=== PATIENT | male | born 1940 | race Caucasian/White ===

== ENCOUNTER 2017-06-13 21:54 | Observation (INO) | payer OTHER ==
[2017-06-13] MEDS ORDERED: ONDANSETRON 4 MG/2 ML VIAL ONE (22:23)
[2017-06-13] MEDS ORDERED: ONDANSETRON 4 MG/2 ML VIAL IVP ONE (22:24)
[2017-06-13] MEDS ORDERED: HYDROmorphONE/DILAUDID 2 MG/ML INJ ONE (22:30)
[2017-06-13] MEDS ORDERED: NS 1,000 ML IV ONE (22:33)
[2017-06-13] MEDS ORDERED: HYDROmorphONE/DILAUDID 2 MG/ML INJ IVP ONE (22:33)
--- NOTE | 2017-06-13 22:33 | EDPHY ---
H & P Stated Complaint: left groin pain with N,V Time Seen by Provider: 06/13/17 22:33 HPI/ROS: HPI CHIEF COMPLAINT: Left lower quadrant pain nausea HISTORY OF PRESENT ILLNESS: Patient is a 77-year-old male, he has coronary artery disease, additionally prostate cancer, presents emergency room with left lower quadrant abdominal pain that started around 830 this evening. It was rather sudden onset it is located left lower quadrant rather severe describes it as sharp stabbing left lower quadrant 10/10 pain. He did have some nausea but no vomiting, denies diarrhea, denies chest pain or shortness of breath. Denies back pain. Main complaint left lower quadrant abdominal pain. Denies testicular pain or urinary symptoms. Denies pain coming from his back. Past Medical History: Coronary artery disease, prostate cancer, obesity Past Surgical History: No recent surgery Social History: Lives locally denies drugs alcohol tobacco. Family History: Noncontributory ROS REVIEW OF SYSTEMS: A comprehensive 10 point review of systems is otherwise negative aside from elements mentioned in the history of present illness. Exam Constitutional appears uncomfortable triage nursing summary reviewed, vital signs reviewed, awake/alert. Eyes normal conjunctivae and sclera, EOMI, PERRLA. HENT normal inspection, atraumatic, moist mucus membranes, no epistaxis, neck supple/ no meningismus, no raccoon eyes. Respiratory clear to auscultation bilaterally, normal breath sounds, no respiratory distress, no wheezing. Cardiovascular rate normal, regular rhythm, no murmur, no edema, distal pulses normal. Gastrointestinal tender palpation a focal area left lower quadrant, no palpable mass, no rebound, no guarding, normal bowel sounds, no distension, no pulsatile mass. Genitourinary no CVA tenderness. Musculoskeletal no midline vertebral tenderness, full range of motion, no calf swelling, no tenderness of extremities, no meningismus, good pulses, neurovascularly intact. Skin pink, warm, & dry, no rash, skin atraumatic. Neurologic awake, alert and oriented x 3, AAOx3, moves all 4 extremities equally, motor intact, sensory intact, CN II-XII intact, normal cerebellar, normal vision, normal speech. Psychiatric normal mood/affect. Heme/Lymph/Immune no lymphadenopathy. Differential diagnosis includes but is not limited to and in no particular order : Bowel obstruction, appendicitis, gallbladder disease, diverticulitis, colitis , enteritis, perforated viscus, gastritis, GERD, esophagitis, urinary tract infection, pyelonephritis, kidney stones Medical Decision Making: Plan for this patient IV establishment IV fluid bolus IV Dilaudid for acute pain control 1 mg, 4 mg IV Zofran for nausea, check basic blood work, lactic acid and re-evaluate. Re-evaluation: CT abdomen pelvis with IV contrast shows a left-sided mid ureter stone is 5 mm. Mild hydronephrosis. Otherwise unremarkable CT scan. Called to me by Dr. Benson. 1204: Patient is feeling much better after IV Dilaudid IV Toradol. Pain is well controlled. CT scan reveals left-sided kidney stone. Patient is requesting admission to the hospital for nausea and IV fluids. Additionally pain control. This time is pain is well controlled. However he met his requesting admission the hospital. Will speak with Dr. Alexander/Lamine for hospital admission. 1210AM: Spoke with Dr. Garcia, on-call, should be glad to admit the patient for nausea pain control. Source: Patient - Personal History Current Tetanus/Diphtheria Vaccine: Yes Current Tetanus Diphtheria and Acellular Pertussis (TDAP): Yes - Medical/Surgical History Hx Chronic Respiratory Disease: Yes Hx Cardiac Disease: Yes Other PMH: prostate CA with recent radium seeds - Social History Smoking Status: Former smoker Constitutional: Initial Vital Signs Temperature (C) 36.8 C 06/13/17 22:00 Heart Rate 55 L 06/13/17 22:00 Respiratory Rate 18 06/13/17 22:00 Blood Pressure 160/83 H 06/13/17 22:00 O2 Sat (%) 94 06/13/17 22:00 O2 Delivery Mode Nasal Cannula O2 (L/minute) 2 Allergies/Adverse Reactions: Penicillins Allergy (Intermediate, Verified 06/26/14 13:51) Hives Home Medications: Medication Instructions Recorded Ascorbic Acid [Vitamin C 500 mg 500 mg PO BID 06/26/14 (*)] Aspirin [Aspirin 325 mg (*)] 325 mg PO HS 06/26/14 Azelastine [Astelin] 200 sprays NS DAILY PRN 06/26/14 Calcium Citrate [Citracal] 600 mg PO BID 06/26/14 Cholecalciferol Vit D3 [Vitamin D3 5,000 unit PO DAILY 06/26/14 (*)] Cholecalciferol Vit D3 [Vitamin D3 5,000 unit PO HS 06/26/14 (*)] Cyanocobalamin (Vitamin B-12) 1,000 mcg PO DAILY 06/26/14 [Vitamin B-12] Divalproex ER [Depakote ER 500 MG 500 mg PO HS 06/26/14 (*)] Docusate Sodium [Colace 100 MG (*)] 100 mg PO BID 06/26/14 Ezetimibe [Zetia 10 MG (*)] 10 mg PO DAILY 06/26/14 Ipratropium/Albuterol [Combivent 1 inh IH QID PRN 06/26/14 Respimat Inhal [place](*)] Levothyroxine [Synthroid 75 mcg 75 mcg PO DAILY06 06/26/14 (*)] Montelukast Sodium [Singulair 10 10 mg PO DAILY@1800 06/26/14 mg (*)] [place]-3 Ethyl Est-Lovaza [Lovaza 1 1 gm PO BID 06/26/14 gm (*)] Omeprazole [Prilosec 20 mg] 20 mg PO DAILY PRN 06/26/14 Pyridoxine HCl [Vitamin B-6 100 mg 100 mg PO DAILY 06/26/14 (*)] QUEtiapine FUMARATE [Seroquel 50 200 mg PO HS 06/26/14 mg (*)] Rosuvastatin Calcium [Crestor 20mg 20 mg PO HS 06/26/14 (*)] Selenium [Selenium 200mcg (*)] 200 mcg PO DAILY 06/26/14 Tamsulosin HCl [Flomax 0.4 MG (*)] 0.4 mg PO BID 06/26/14 Vitamin E [Vitamin E 200 units] 200 units PO DAILY 06/26/14 clonazePAM [Klonopin (*)] 1 mg PO HS 06/26/14 Bupropion HCl [Wellbutrin Xl] 300 mg PO DAILY 06/28/14 buPROPion XL [Wellbutrin 150mg XL] 150 mg PO DAILY 06/28/14 Benzonatate [Tessalon Pearles] 200 mg PO TID PRN #0 cap 07/02/14 predniSONE 20 mg PO BIDMEAL #0 tablet 07/02/14 Medical Decision Making - Diagnostics Imaging Results: Imaging Impressions Abdomen CT 06/13/17 22:36 Impression: 1. Obstructive 5 mm calculus in the left mid ureter causing mild-moderate hydronephrosis. 2. Sigmoid diverticulosis, mild. Findings were communicated by telephone with Dr. Steve Hull MD at 2017 23:31 - Data Points Laboratory Results: Laboratory Results 06/13/17 22:20 06/13/17 22:20 06/13/17 06/13/17 06/13/17 22:40 22:20 22:20 WBC RBC Hgb Hct MCV MCH MCHC RDW Plt Count MPV Neut % (Auto) Lymph % (Auto) [place] % (Auto) Eos % (Auto) Baso % (Auto) Nucleat RBC Rel Count Absolute Neuts (auto) Absolute Lymphs (auto) Absolute Monos (auto) Absolute Eos (auto) Absolute Basos (auto) Absolute Nucleated RBC Immature Gran % Immature Gran # PT 13.2 SEC SEC (12.0-15.0) INR 0.98 (0.83-1.16) APTT 26.9 SEC SEC (23.0-38.0) VBG Lactic Acid 1.4 mmol/L mmol/L (0.7-2.1) Sodium 141 mEq/L mEq/L (135-145) Potassium 4.6 mEq/L mEq/L (3.5-5.2) Chloride 104 mEq/L mEq/L (97-110) Carbon Dioxide 26 mEq/l mEq/l (22-31) Anion Gap 11 mEq/L mEq/L (8-16) BUN 29 mg/dL H mg/dL (7-23) Creatinine 1.2 mg/dL mg/dL (0.7-1.3) Estimated GFR 59 Glucose 118 mg/dL H mg/dL (70-100) Calcium 9.5 mg/dL mg/dL (8.5-10.4) Total Bilirubin 0.4 mg/dL mg/dL (0.1-1.4) Conjugated Bilirubin 0.4 mg/dL mg/dL (0.0-0.5) Unconjugated Bilirubin 0.0 mg/dL mg/dL (0.0-1.1) AST 67 IU/L H IU/L (17-59) ALT 81 IU/L H IU/L (21-72) Alkaline Phosphatase 48 IU/L IU/L (38-126) Total Protein 6.3 g/dL g/dL (6.3-8.2) Albumin 4.0 g/dL g/dL (3.5-5.0) Lipase 86 IU/L IU/L (23-300) 06/13/17 22:20 WBC 4.75 10^3/uL 10^3/uL (3.80-9.50) RBC 4.50 10^6/uL 10^6/uL (4.40-6.38) Hgb 15.1 g/dL g/dL (13.7-17.5) Hct 43.9 % % (40.0-51.0) MCV 97.6 fL fL (81.5-99.8) MCH 33.6 pg pg (27.9-34.1) MCHC 34.4 g/dL g/dL (32.4-36.7) RDW 13.4 % % (11.5-15.2) Plt Count 136 10^3/uL L 10^3/uL (150-400) MPV 9.9 fL fL (8.7-11.7) Neut % (Auto) 68.0 % % (39.3-74.2) Lymph % (Auto) 17.1 % % (15.0-45.0) [place] % (Auto) 10.1 % % (4.5-13.0) Eos % (Auto) 4.0 % % (0.6-7.6) Baso % (Auto) 0.4 % % (0.3-1.7) Nucleat RBC Rel Count 0.0 % % (0.0-0.2) Absolute Neuts (auto) 3.23 10^3/uL 10^3/uL (1.70-6.50) Absolute Lymphs (auto) 0.81 10^3/uL L 10^3/uL (1.00-3.00) Absolute Monos (auto) 0.48 10^3/uL 10^3/uL (0.30-0.80) Absolute Eos (auto) 0.19 10^3/uL 10^3/uL (0.03-0.40) Absolute Basos (auto) 0.02 10^3/uL 10^3/uL (0.02-0.10) Absolute Nucleated RBC 0.00 10^3/uL 10^3/uL (0-0.01) Immature Gran % 0.4 % % (0.0-1.1) Immature Gran # 0.02 10^3/uL 10^3/uL (0.00-0.10) PT INR APTT VBG Lactic Acid Sodium Potassium Chloride Carbon Dioxide Anion Gap BUN Creatinine Estimated GFR Glucose Calcium Total Bilirubin Conjugated Bilirubin Unconjugated Bilirubin AST ALT Alkaline Phosphatase Total Protein Albumin Lipase Medications Given: Discontinued Medications Hydromorphone HCl (Dilaudid) 1 mg IVP EDNOW ONE Stop: 06/13/17 22:34 Last Admin: 06/13/17 22:36 Dose: 1 mg Hydromorphone HCl (Dilaudid) 1 mg IVP EDNOW ONE Stop: 06/13/17 23:22 Last Admin: 06/13/17 23:24 Dose: 1 mg Sodium Chloride (Ns) 1,000 mls @ 0 mls/hr IV EDNOW ONE; Wide Open PRN Reason: Protocol Stop: 06/13/17 22:34 Last Admin: 06/13/17 22:43 Dose: 1,000 mls Ketorolac Tromethamine (Toradol) 15 mg IVP EDNOW ONE Stop: 06/13/17 23:26 Last Admin: 06/13/17 23:32 Dose: 15 mg Ondansetron HCl (Zofran) 4 mg IVP EDNOW ONE Stop: 06/13/17 22:25 Last Admin: 06/13/17 22:26 Dose: 4 mg Departure - Departure Disposition: [facility] Acute Clinical Impression: Flank pain, Kidney stone on left side Condition: Good Instructions: Kidney Stones (ED), Renal Colic (ED) Additional Instructions: 1. Make sure to drink lots of fluids stay well-hydrated. 2. Flomax as prescribed. 3. Return emergency room if develops worsening abdominal pain fever vomiting. 4. Follow up with Urology. Referrals: Ashok Perales MD [Primary Care Provider] - As per Instructions
[2017-06-13 22:43] LABS: PLATELET COUNT 136 10^3/uL (150-400)
[2017-06-13 22:48] LABS: INR 0.98 (0.83-1.16); PROTIME(PATIENT) 13.2 SEC (12.0-15.0)
[2017-06-13] MEDS ORDERED: IOPAMIDOL (ISOVUE-300) 100 ML BTL ONE (22:56)
[2017-06-13] MEDS ORDERED: HYDROmorphONE/DILAUDID 1 MG/ML INJ IVP ONE (23:21)
[2017-06-13] MEDS ORDERED: KETOROLAC 15 MG/1 ML SDV IVP ONE (23:25)
[2017-06-14] MEDS ORDERED: NS 1,000 ML IV ONE (00:04)
--- NOTE | 2017-06-14 00:26 | CPEKG ---
Heart Rate: 44 RR Interval: 1364 P-R Interval: 196 QRSD Interval: 96 QT Interval: 528 QTC Interval: 452 P Viola: 44 QRS Viola: -10 T Wave Viola: 58 EKG Severity - BORDERLINE ECG - EKG Impression: SINUS BRADYCARDIA EKG Impression: BORDERLINE T WAVE ABNORMALITIES Electronically Signed By: Tiffanie Rod 15-Jun-2017 12:30:32
--- NOTE | 2017-06-14 01:33 | SOAPPROG ---
SOAP Progress Note Assessment/Plan: Assessment: Plan: 06/14/17 02:13 Nephrolithiasis: currently in process of passing kidney stone. Pain well managed with dilaudid. Having nausea, likely in response to narcotic. Is somewhat sedated, so will use lower dose dilaudid as needed until stone passes. Associated with mild hydronephrosis. Continue prn zofran. Bradycardia: heart typically in the 50s. Suspect decreased rate secondary to narcotics. Pt without chest pain. Was not tachycardic in ED even when pain at its worst. CAD: Significant plaque on EBT heart scan, but stable on last scan done 09/18. Continue Lovaza, niaspan, low dose metoprolol, aspirin Asthma/COPD: uses combivent prn. Currently asymptomatic Hyperlipidemia: on crestor, zetia Bipolar 1: on multiple meds--bupropion, depakote, seroquel, clonazepam so will continue Hypothyroid: on replacement Prostate cancer: treatment has left him with difficulty having BMs, so takes Miralax and docusate daily. Will plan to continue Mild elevation of ALT, AST: not seen on previous labs done in 10/19. Will recheck in morning. EZE: uses CPAP at home but didn't bring equipment with him. DVT prophylaxis: will use SCDs given that he is passing stone. No urine yet to assess for bleeding, but will avoid anticoagulant Dispo: admit to obs. Expect he will pass stone and be ready for discharge later today. 06/14/17 02:39 06/14/17 02:43 Subjective: 77 yo male with hx CAD, prostate cancer, bipolar 1, asthma and COPD who developed severe L sided abdominal pain at approximately 8:30 pm tonight. Pain was initially 9/10 then decreased to 4/10, then began to worsen again so he came to ED. States he has been followed by a urologist in [place], which is where he has been treated for his prostate cancer, and sounds like he may have had an asymptomatic stone high in his collecting system. CT in the ER tonight shows a 5mm stone in the mid L ureter with mild-moderate hydronephrosis. Labs are unremarkable except for a mild elevation of AST and ALT. He has received dilaudid in the ED and is currently pain free. He has had some nausea which started when pain was severe. He is also bradycardic in the 40s. His usual heart rate is in the 50s. He is being admitted for ongoing pain management while passing the stone, and to be observed for his bradycardia. Objective: Vital Signs Temp Pulse Resp BP Pulse Ox 36.7 C 44 L 16 116/79 95 06/14/17 00:00 06/14/17 00:00 06/14/17 00:00 06/14/17 00:00 06/14/17 00:00 PT 13.2 SEC (12.0-15.0) 06/13/17 22:20 INR 0.98 (0.83-1.16) 06/13/17 22:20 General: well-developed, well-nourished male, a little sleepy, NAD HEENT: NC/AT. Pupils constricted, EOMI. O/p dry. Neck: supple, no masses, adenopathy Cardiovascular: bradycardic, regular rhythm, no murmur Lungs: few crackles L base, otherwise clear Abdomen: +bowel sounds, soft, NT. No hepatosplenomegaly, masses noted Skin: hairless, no significant lesions noted, no rash Musculoskeletal: no deformities, swelling Neurologic: a little sedated but answers questions appropriately, moving all extremities Psychiatric: normal mood, affect, speech normal ICD10 Worksheet Patient Problems: Problems Problem Status Onset Flank pain Acute Kidney stone on left side Acute Bipolar 1 disorder, mixed, full remission Acute Chronic Disease Mgmt/Transitional Care Acute Pneumonia Acute
[2017-06-14] MEDS ORDERED: ACETAMINOPHEN 325 MG TAB PO PRN (01:46)
[2017-06-14] MEDS ORDERED: ONDANSETRON 4 MG/2 ML VIAL IVP PRN (01:46)
[2017-06-14] MEDS ORDERED: HYDROmorphONE/DILAUDID 1 MG/ML INJ IVP PRN (01:46)
[2017-06-14] MEDS ORDERED: HYDROmorphone HCL/NS 0.5 MG/ML SYR IVP PRN (01:54)
[2017-06-14] MEDS ORDERED: NIACIN ER 1000 MG TAB.ER PO SCH ×2 (02:00→21:00)
[2017-06-14] MEDS ORDERED: clonazePAM 0.5 MG TAB PO SCH (02:00)
[2017-06-14] MEDS ORDERED: MONTELUKAST SODIUM 10 MG TAB PO SCH (02:00)
[2017-06-14] MEDS ORDERED: IPRATROPIUM/ALBUTEROL 4GM MDI IH PRN (02:02)
[2017-06-14] MEDS: ONDANSETRON DISINTEGRATING 4 MG TAB PO PRN ×2 (02:10→03:30)
[2017-06-14] MEDS: POLYETHYLENE GLYCOL 3350 17 GM PKT PO SCH ×2 (03:26→10:28)
[2017-06-14] MEDS: DIVALPROEX ER 500 MG TAB PO SCH ×2 (03:28→10:28)
[2017-06-14] MEDS: OMEGA-3 ETHYL EST-LOVAZA 1 GM CAP PO SCH ×2 (03:28→10:22)
[2017-06-14] MEDS: QUEtiapine FUMARATE 200 MG TAB PO SCH ×2 (03:28→10:23)
[2017-06-14] MEDS: DOCUSATE SODIUM 100 MG CAP PO SCH ×2 (03:29→10:21)
--- NOTE | 2017-06-14 04:22 | GHP ---
[f rep st] HISTORY AND PHYSICAL DATE OF ADMISSION: 06/13/2017 HISTORY OF PRESENT ILLNESS: The patient is a 77-year-old male with a history of coronary artery dise ase, prostate cancer, bipolar 1, asthma, and COPD who developed severe left-sided abdominal pain at a pproximately 8:30 p.m. earlier this evening. The pain was initially 9/10 and then decreased to 4/10, but then began to worsen again so he came to the emergency department for further evaluation. He st ates that he has been followed by a urologist in [place], which is where he has been treated for his prostate cancer and sounds like he may have had an asymptomatic stone higher in his collecting system . CT in the emergency department tonight shows a 5 mm stone in the mid left ureter with mild to mode rate hydronephrosis. Labs are unremarkable except for mild elevation of AST and ALT. He received Di laudid 1 mg in the emergency department and is currently pain free. He has had some nausea, which st arted when his pain was severe. He is also bradycardic in the 40s. His usual heart rate is in the 5 0s. He is being admitted for ongoing pain management while passing the stone and to be observed for bradycardia. PAST MEDICAL HISTORY: Asthma, hyperlipidemia, remote history of pneumonia, coronary artery disease, sleep apnea on CPAP, bipolar 1, testicular hypofunction, erectile dysfunction, vitamin D deficiency, prostate cancer, hypothyroidism. MEDICATIONS: Clonazepam 0.5 mg at bedtime, levothyroxine 75 mcg daily, Crestor 20 mg daily, Niaspan 1000 mg daily, Lovaza 1 g 3 capsules b.i.d., bupropion 150 mg 3 tablets daily, divalproex sodium 500 mg 2 capsules daily, Seroquel 200 mg daily, Combivent 4 times daily p.r.n., MiraLAX 17 g daily, Viagr a 20 mg 1-5 tablets p.r.n., Zetia 10 mg daily, Singulair 10 mg daily, metoprolol tartrate 25 mg 1/2 t ablet daily, docusate sodium 100 mg 2 tablets b.i.d., vitamin D 5000 international units daily, vitam in E 200 international units daily, vitamin C 500 mg b.i.d., vitamin B12 500 mcg daily, vitamin B6 10 0 mg daily, selenium 200 mcg daily, zinc 100 mg daily. ALLERGIES: Penicillin and Levaquin. SOCIAL HISTORY: The patient is . He is a nonsmoker and nondrinker. REVIEW OF SYSTEMS: GENERAL: He denies any fever or chills. HEENT: No rhinitis or visual changes. RESPIRATORY: No cough or shortness of breath. CARDIOVASCULAR: No chest pain or pressure. No irre gular heartbeats. He has a chronic mild bradycardia. Occasional edema. ABDOMEN: Left-sided abdomi nal pain as per HPI associated with nausea but no vomiting. He has chronic loose stool. : No hem aturia or dysuria. MUSCULOSKELETAL: No joint pain or swelling. NEUROLOGIC: No headache. He does feel somewhat numb and tingly since receiving Dilaudid and feels like his brain is not functioning qu ite normally, but this is not usual for him. PSYCHIATRIC: No changes in anxiety, depression, or sle ep. PHYSICAL EXAMINATION: VITAL SIGNS: On admission, blood pressure 130/67, heart rate 50, respiratory rate 16, O2 saturation 95% on 2 L, temperature 36.7. Currently, blood pressure is 143/44 with a hear t rate of 43, respiratory rate 16, O2 saturation 95% on room air, temperature is 36.2. GENERAL: Wel l-developed, well-nourished male, a little bit sleepy but in no acute distress. HEENT: Normocephali c, atraumatic. Pupils are constricted. Extraocular movements are intact. Oropharynx is dry. NECK: Supple without masses or adenopathy. CARDIOVASCULAR: Regular rhythm, bradycardia. No murmur note d. LUNGS: Few crackles noted in the left base, otherwise clear and moving air well. ABDOMEN: Norm al bowel sounds. Soft and nontender. No hepatosplenomegaly or masses noted. SKIN: He is hairless. No significant skin lesions noted. No rash. MUSCULOSKELETAL: No deformities or swelling. NEUROL OGIC: Mildly sedated but answers questions appropriately and is moving all extremities. PSYCHIATRIC : Normal mood and affect. Speech is normal. ASSESSMENT AND PLAN: 1. Nephrolithiasis. He is currently in process of passing a kidney stone. His pain is well managed with Dilaudid. He is having some nausea likely in response to narcotic. He is also somewhat sedate d so we will lower his Dilaudid dose, which will be used as needed until the stone passes. He does h ave some associated mild hydronephrosis, which should also resolve once the stone has passed. 2. Bradycardia. Heart rate is typically in the 50s. Suspect his decreased rate is secondary to paulo cotics. He is without any chest pain. Interestingly, he was not tachycardic in the emergency depart ment even when his pain was at its worst. 3. Coronary artery disease. Significant plaque on most recent EBT Heart Scan, though this plaque is stable. Last scan was done 09/18. We will continue Lovaza, Niaspan, low-dose metoprolol, and aspir in. 4. Asthma/chronic obstructive pulmonary disease. He uses Combivent p.r.n. and is currently asymptom at. 5. Hyperlipidemia. He is on Crestor and Zetia. 6. Bipolar 1. On multiple medications including bupropion, Depakote, Seroquel, and clonazepam, so w e will continue these. 7. Hypothyroid. He is on replacement. 8. Prostate cancer. The treatment left him with significant difficulties with bowel movements, like ly related to what sounds like a rectal stenosis, so he uses MiraLAX and docusate on a daily basis. We will plan to continue this. 9. Mildly elevated AST and ALT. Etiology unclear. This was not seen on previous lab work done in A ugust of 2017. We will recheck in the morning. 10. Obstructive sleep apnea. He uses CPAP at home but did not bring his device tonight. 11. Deep venous thrombosis prophylaxis. We will use sequential compression devices given that he is passing a stone. No urine so far to assess for bleeding, but we will avoid anticoagulant. DISPOSITION: Admit to obs. Expect that he will pass the stone and be ready for discharge later marie henry /[id number]/MODL
[2017-06-14] MEDS ORDERED: LEVOTHYROXINE 75 MCG TAB PO SCH (06:00)
[2017-06-14] MEDS ORDERED: EZETIMIBE 10 MG TAB PO SCH (09:00)
[2017-06-14] MEDS ORDERED: CYANO/VITAMIN B12 1000 MCG TAB PO SCH (09:00)
[2017-06-14] MEDS ORDERED: ASPIRIN EC 325 MG TAB PO SCH (09:00)
[2017-06-14] MEDS ORDERED: ASCORBIC ACID 500 MG TAB PO SCH (09:00)
[2017-06-14] MEDS ORDERED: ROSUVASTATIN CALCIUM 20 MG TAB PO SCH ×2 (09:00→21:00)
[2017-06-14] MEDS ORDERED: PYRIDOXINE HCL 100 MG TAB PO SCH (09:00)
[2017-06-14] MEDS ORDERED: buPROPion XL 150 MG TAB PO SCH (09:00)
[2017-06-14] MEDS ORDERED: METOPROLOL TARTRATE 25 MG TAB PO ONE (09:05)
[2017-06-14] MEDS ORDERED: NON-FORMULARY NEW DRUG (Omeprazole [Prilosec 20 Mg] 20 MG) PO PRN (09:10)
[2017-06-14] MEDS ORDERED: SELENIUM 0.2 MG TAB PO SCH (09:15)
[2017-06-14] MEDS ORDERED: VITAMIN E 200 UNIT PO SCH (09:15)
[2017-06-14] MEDS ORDERED: OXYCODONE/APAP 5/325 TAB PO PRN ×2 (09:37→13:00)
--- NOTE | 2017-06-14 09:37 | SOAPPROG ---
SOAP Progress Note Assessment/Plan: Assessment: Plan: 06/14/17 02:13 Nephrolithiasis: currently in process of passing kidney stone. Pain well managed with dilaudid. Having nausea, likely in response to narcotic. Is somewhat sedated, so will use lower dose dilaudid as needed until stone passes. Associated with mild hydronephrosis. Continue prn zofran. Bradycardia: heart typically in the 50s. Suspect decreased rate secondary to narcotics. Pt without chest pain. Was not tachycardic in ED even when pain at its worst. CAD: Significant plaque on EBT heart scan, but stable on last scan done 09/18. Continue Lovaza, niaspan, low dose metoprolol, aspirin Asthma/COPD: uses combivent prn. Currently asymptomatic Hyperlipidemia: on crestor, zetia Bipolar 1: on multiple meds--bupropion, depakote, seroquel, clonazepam so will continue Hypothyroid: on replacement Prostate cancer: treatment has left him with difficulty having BMs, so takes Miralax and docusate daily. Will plan to continue Mild elevation of ALT, AST: not seen on previous labs done in 10/19. Will recheck in morning. EZE: uses CPAP at home but didn't bring equipment with him. DVT prophylaxis: will use SCDs given that he is passing stone. No urine yet to assess for bleeding, but will avoid anticoagulant Dispo: admit to obs. Expect he will pass stone and be ready for discharge later today. 06/14/17 02:39 06/14/17 02:43 06/14/17 09:34 Nephrolithiasis: currently pain free and hasn't need further pain rx, but doesn' t think he's passed stone. Would like to wait a little bit longer to see if he passes stone. Will check in with him around lunch time. If still pain free, anticipate d/c. Bradycardia: heart rate in the 50s this morning, which is usual for him Mild AST/ALT elevation: LFTs normal this am Subjective: Feeling much better this morning. No further pain though hasn't seen stone yet. Has been urinating in urinal. Appetite good. Objective: Vital Signs Temp Pulse Resp BP Pulse Ox 36.2 C 58 L 18 120/62 94 06/14/17 08:14 06/14/17 08:14 06/14/17 08:14 06/14/17 08:14 06/14/17 08:14 Laboratory Results 06/14/17 07:19 06/13/17 06/14/17 06/15/17 05:59 05:59 05:59 Intake Total 2220 Output Total 575 Balance 1645 PT 13.2 SEC (12.0-15.0) 06/13/17 22:20 INR 0.98 (0.83-1.16) 06/13/17 22:20 General: awake, alert, pleasant Lungs: clear bilaterally Cardiovascular: sinus bradycardia, no murmur Abdomen: +bowel sounds, soft, NT Extremities: no edema ICD10 Worksheet Patient Problems: Problems Problem Status Onset Flank pain Acute Kidney stone on left side Acute Bipolar 1 disorder, mixed, full remission Acute Chronic Disease Mgmt/Transitional Care Acute Pneumonia Acute
[2017-06-14] MEDS ORDERED: PANTOPRAZOLE SODIUM 40 MG TAB PO PRN (09:46)
[2017-06-14] MEDS: CHOLECALCIFEROL VIT D3 2,000 UNITS TAB/CAP PO SCH ×2 (10:22→10:35)
[2017-06-14] MEDS ORDERED: METOPROLOL TARTRATE 25 MG TAB PO SCH (10:30)
[2017-06-14 15:24] VITALS: BP 117/51
[2017-06-14] MEDS ORDERED: QUEtiapine FUMARATE 200 MG TAB PO SCH (21:00)
[2017-06-14] MEDS ORDERED: POLYETHYLENE GLYCOL 3350 17 GM PKT PO SCH (21:00)
[2017-06-14] MEDS ORDERED: DIVALPROEX ER 500 MG TAB PO SCH (21:00)
[2017-06-15] MEDS ORDERED: METOPROLOL TARTRATE 25 MG TAB PO SCH (09:00)
[2017-06-15] MEDS ORDERED: NON-FORMULARY NEW DRUG (Cyanocobalamin (Vitamin B-12) [Vitamin B-12] 1,000 MCG) PO SCH (09:00)
[2017-06-15] MEDS ORDERED: CYANO/VITAMIN B12 1000 MCG TAB PO SCH (09:00)
== END 2017-06-14 18:41 | disposition home or self-care (01) ==
LOC: F1N 06-14 01:34
PROVIDERS: ADMIT Internal Medicine; ATTEND Internal Medicine
DX: N13.2 Hydronephrosis with renal and ureteral calculous obstruction (principal); R00.1 Bradycardia, unspecified; E86.9 Volume depletion, unspecified; I25.10 Atherosclerotic heart disease of native coronary artery without angina pectoris; E66.9 Obesity, unspecified; Z68.31 Body mass index [BMI] 31.0-31.9, adult; F31.9 Bipolar disorder, unspecified; J44.9 Chronic obstructive pulmonary disease, unspecified; E78.5 Hyperlipidemia, unspecified; G47.33 Obstructive sleep apnea (adult) (pediatric); E29.1 Testicular hypofunction; E03.9 Hypothyroidism, unspecified; E55.9 Vitamin D deficiency, unspecified; Z85.46 Personal history of malignant neoplasm of prostate; Z88.0 Allergy status to penicillin
CPT/HCPCS: 74177; 93005; G0378; J1170; J1885; J2405; Q9967; 96374